=== PATIENT | male | born 1955 | race Caucasian/White ===

== ENCOUNTER 2018-07-28 03:40 | Inpatient (IN) ==
[2018-07-28] MEDS ORDERED: Naloxone 0.4 MG/ML INJ IVP PRN (05:27)
[2018-07-28] MEDS ORDERED: Ringers Solution, Lactated 1,000 ML IVC SCH (05:30)
[2018-07-28] MEDS ORDERED: Norepinephrine 4 MG in D5% in Water 250 ML IVC SCH (05:45)
[2018-07-28] MEDS ORDERED: 0.9 % Sodium Chloride 500 ML ONE (05:49)
[2018-07-28 05:52] LABS: ABG Base Excess -24 mEq/L (-2 to 3); ABG HCO3 9 mEq/L (21-27); ABG Oxygen Saturation 81 % (95-98); ABG PCO2 51 mmHg (35-45); ABG PH 6.87 pH Units (7.32-7.45); ABG PO2 78 mmHg (85-104); ABG TCO2 11 mEq/L (20-26); Blood Gas Modality ASSIST CONTROL; Blood Gas PEEP 10 cm H2O; Blood Gas Respiration Rate 16; Blood Gas VT 550 cc
[2018-07-28] MEDS ORDERED: EPINEPHrine 1 MG in D5% in Water 250 ML IVC SCH (06:00)
[2018-07-28 06:13] LABS: Heparin anti-factor XA UFH 0.01 IU/mL (0.30-0.70); INR 2.1; Prothrombin Time 24.1 Seconds (9.4-12.1)
[2018-07-28] MEDS ORDERED: 0.9 % Sodium Chloride 1,000 ML ONE (06:27)
[2018-07-28 06:28] LABS: Activated Partial Thrombo Time 120.3 Seconds (26.0-36.0)
[2018-07-28 06:30] LABS: Troponin I 16.27 ng/mL (< 0.04)
[2018-07-28 06:32] LABS: Albumin 3.7 g/dL (3.5-5.7); Albumin/Globulin Ratio 1.4 (1.1-2.2); Bilirubin,Direct 0.1 mg/dL (0.0-0.2); Bilirubin,Indirect 0.3 mg/dL (0.0-1.2); Bilirubin,Total 0.4 mg/dL (0.3-1.0); Calcium 9.9 mg/dL (8.6-10.3); Globulin 2.6 g/dL (2.4-3.5); Phosphorous 13.5 mg/dL (2.7-4.5); Potassium 5.9 mEq/L (3.5-5.1); Total Protein 6.3 g/dL (6.4-8.9)
[2018-07-28 07:12] LABS: Eosinophils # 0.2 K/mcL (0.0-0.6); Hematocrit 51.2 % (37.5-50.1); Hemoglobin 15.4 g/dL (12.9-16.9); Mean Corpuscular HGB Conc 30.1 g/dL (31.6-35.5); Mean Corpuscular Hemoglobin 29.4 pg (28.0-33.3); Mean Corpuscular Volume 97.9 fL (83.0-100.0); Mean Platelet Volume 9.9 fL (9.4-12.4); Nucleated Red Blood Cells 0.6 /100 WBC (0); Platelet Count 212 K/mcL (140-400); Red Blood Count 5.23 M/mcL (4.19-5.50); Red Cell Distribution Width 13.2 % (11.5-14.5)
[2018-07-28 07:16] LABS: ABG Base Excess -19 mEq/L (-2 to 3); ABG HCO3 12 mEq/L (21-27); ABG Oxygen Saturation 76 % (95-98); ABG PCO2 51 mmHg (35-45); ABG PO2 61 mmHg (85-104); ABG TCO2 14 mEq/L (20-26)
--- NOTE | 2018-07-28 07:26 | Internal Med History&Physical ---
<Brando Shieldsbh - Last Filed: 07/28/18 07:56> Date of Encounter: 07/28/18 Time of Encounter: 06:00 Internal Medicine - H&P: HPI History of present illness: Mr. Ortiz is a 62 year old male who is a transfer of from [place] because cardiac arrest. Patient was down for about 37 minutes when EMS got to the scene and they began the ACLS resuscitation. Most of the story was obtained from notes from the ER physician. According to them, patient was down for 20 mins even prior to arrival EMS. EMS initiated the ACLS protocol. Patient was given several doses of epinephrine, underwent defibrillation, was given amiodarone, and given atropine. Eventually patient ended up getting a transcutanous pacer, was started on dopamine and then on Levophed. Prior to putting the patient on a pacer, patient pulse was 35 and after putting him on the pacer, his heart rate went up to 80 with systolic blood pressure of 80s. patient was able to maintain this for over half an hour and life flight to the [facility] ICU for further management . Initial workup in the ER at the [place] showed patient white blood count was 8.6, glucose : 552, Trops 1.08, BNP : 297. Patient initial had a femoral access but had to transition to IJ access - currently he is on Levophed, dopamine and no epinephrine for blood pressure control current blood pressure is 74/44 with MAP of 59. All Systems PM: A 10-system review of systems was performed and is negative for pertinent fin dings except as documented above in the HPI. - Constitutional Constitutional: no fever(s) - Gastrointestinal Gastrointestinal: no bloating - Genitourinary Genitourinary ROS male: no dysuria - Musculoskeletal Musculoskeletal ROS IM: no joint swelling - Integumentary Integumentary IM: no rash - Constitutional Vitals: Resp Pulse Ox 16 94 07/28/18 05:17 07/28/18 05:17 Exam: Gen.: intubated . HEENT: oropharynx clear, Normocephalic, atraumatic, MMM Neck: supple, no JVD, no lymphadenopathy, no carotid bruit. Cardiac: transcutaneously paced, no murmur, +S1/S2, No BLE edema, PMI non- displaced Pulmonary: no wheezes, rales or rhonchi, equal chest expansion, unlabored breathing Abdomen: soft, nontender, BS noted, no guarding, mildly distended. No organomegaly, no pulsatile masses, Skin: no visible lesions. Feels warm, clammy, no rashes, no lesions, no erythema, right lower extremity was cool to touch MSK: ROM not assessed. no joint swelling noted, gait not assessed while in bed. Non tender calf or clubbing, no cyanosis/clubbing/ or edema Neuro: Not assessed because patient was intubated Internal Med - H&P Results - Labs CBC & Chem 7: 07/28/18 06:58 07/28/18 05:52 Labs: BMP 07/28/18 05:52 Sodium 139 Potassium 5.9 H Chloride 102 Carbon Dioxide 13 L BUN 14 Creatinine 1.71 H Glucose 420 H Calcium 9.9 Cardiac Enzymes 07/28/18 Range/Units 05:52 Troponin I 16.27 H* (< 0.04) ng/mL Liver Function 07/28/18 Range/Units 05:52 Total Bilirubin 0.4 (0.3-1.0) mg/dL Direct Bilirubin 0.1 (0.0-0.2) mg/dL AST 264 H (13-39) Units/L ALT 140 H (7-52) Units/L Alkaline Phosphatase 187 H (34-104) Units/L Albumin 3.7 (3.5-5.7) g/dL - ABG Interpretation ABG results: 07/28/18 07/28/18 05:47 07:10 ABG pH 6.87 L* 7.00 L* D ABG pCO2 51 H 51 H ABG pO2 78 L 61 L ABG HCO3 9 L 12 L ABG Total CO2 11 L 14 L ABG O2 Saturation 81 L 76 L ABG Base Excess -24 L -19 L - Assessment and plan (1) Cardiac arrest Current Visit: Yes Status: Acute Assessment and plan: Etiology currently unknown. Patient found down 37 minutes before squad began ACLS on him and was transferred to the [place] ED. Patient underwent ACLS protocol with multiple rounds of CPR, and ACLS medications before being sent to [facility] ICU for further management. Here at the [place] patient went into V. tach,and ACLS was initiated again but eventually due to worsening hemodynamic status, family decided to withdraw care, and patient was pronounced at 7:25 AM - Time Spent With Patient Total time spent is greater than 50% in coordination of care (as documented) at patient's floor/unit and/or counseling patient: Brook Crowley - Last Filed: 07/28/18 19:11> Date of Encounter: 07/28/18 All Systems PM: A 10-system review of systems was performed and is negative for pertinent findings except as documented above in the HPI. - Constitutional Vitals: Resp Pulse Ox 16 94 07/28/18 05:17 07/28/18 05:17 Internal Med - H&P Results - Labs CBC & Chem 7: 07/28/18 06:58 07/28/18 05:52 Labs: BMP 07/28/18 05:52 Sodium 139 Potassium 5.9 H Chloride 102 Carbon Dioxide 13 L BUN 14 Creatinine 1.71 H Glucose 420 H Calcium 9.9 Cardiac Enzymes 07/28/18 Range/Units 05:52 Troponin I 16.27 H* (< 0.04) ng/mL Liver Function 07/28/18 Range/Units 05:52 Total Bilirubin 0.4 (0.3-1.0) mg/dL Direct Bilirubin 0.1 (0.0-0.2) mg/dL AST 264 H (13-39) Units/L ALT 140 H (7-52) Units/L Alkaline Phosphatase 187 H (34-104) Units/L Albumin 3.7 (3.5-5.7) g/dL - ABG Interpretation ABG results: 07/28/18 07/28/18 05:47 07:10 ABG pH 6.87 L* 7.00 L* D ABG pCO2 51 H 51 H ABG pO2 78 L 61 L ABG HCO3 9 L 12 L ABG Total CO2 11 L 14 L ABG O2 Saturation 81 L 76 L ABG Base Excess -24 L -19 L - Time Spent With Patient Total time spent is greater than 50% in coordination of care (as documented) at patient's floor/unit and/or counseling patient: - Attending Attestation I performed a history and physical exam of the patient and discussed management with the resident. I reviewed the resident's note and agree with the documented findings and plan of care. Information obtained from chart review and discussion with healthcare providers. Stu ortiz is a 62-year-old male with a reported history of hypertension and diabetes who was found down for approximately 20 minutes prior to EMS arrival, seen to be in cardiac arrest and underwent ACLS for 30-40 minutes prior to arrival to the hospital. At [place] CPR continued for another 30 minutes reported. He was intubated and femoral line was placed. Apart from the several doses of epinephrine and he was also defibrillated due to findings of V. fib and was given amiodarone; ROSC was then obtained. He was also given atropine and subsequently was started on transcutaneous pacing due to bradyarrhythmia after return of spontaneous circulation. Dopamine and norepinephrine were subsequently added on but remained hypotensive. Discussions were held with the family in regards to the gravity of the situation and poor prognosis. He is transferred here for further care. On arrival he remains on transcutaneous pacing. Physical exam remarkable for dilated and fixed pupils bilaterally, right leg from the groin down to his toes cold, pale and pulseless. Seen to have a femoral CVC placed however on my assessment it seems to have been placed in the artery and not the vein; blood gas extracted from this line confirms this finding. We will admit to ICU for out of hospital cardiac arrest and place on therapeutic hypothermia protocol. Continue vasopressor support and titrate vent settings according to ABG. Set pacing capture to 60bpm minimum. Get EKG and perform an echo. Check electrolytes for imbalances. Trend troponins over the next 24 hours. Monitor lactate levels. High-grade leukocytosis likely secondary to prolonged cardiac arrest. Continued monitoring and full evaluation for signs of infection should continue, especially subsequent development of pneumonia, but in the meantime there is no indication for prophylactic antimicrobials. Remove catheter from femoral site and consult vascular surgery. R IJ has been placed by me for more adequate access. Obtain urine toxicology testing. Request cardiology consultation as he may require PCI and also consideration of AICD for secondary prevention down the line. Head of bed elevation, ponce catheterization for output monitoring, maintenance of normoglycemia, stress ulcer and DVT prophylaxis should be performed. Enteral feeding can resume once hypothermia is completed. Prognosis remains poor and family has been made aware. He will require neurologic evaluation off sedation once/if stabilization is achieved. [place].
--- NOTE | 2018-07-28 07:26 | Procedure Note ---
Date of procedure: 07/28/18 Pre-op diagnosis: cardiac arrest Post-op diagnosis: same Procedure: The patient was placed in supine position and the area was prepped and draped in a sterile fashion. The area over the right IJ was anesthetized using 3cc's of 1% lidocaine. Using the sonosite, the IJ was identified, and a cook needle was used to cannulate the vein. Dark, non-pulsatile blood was seen. Using the Seldinger technique, a guidewire was passed through the needle and the needle was withdrawn. A small incision was made and a dilator sheath was then passed over the guidewire and then removed. The catheter was then placed as the guidewire was removed. The catheter was then sutured in place. All 3 ports had good return, and flushed with normal saline easily. Patient tolerated the procedure well. Surgeon: Oscar Shields Was there an observation assistant present: Yes Roller Cleaner: Brook Pearson Estimated blood loss (cc): 3.0 Specimen: none Pathology: none sent Condition: critical Disposition: ICU
--- NOTE | 2018-07-28 07:31 | Death Note ---
<Oscar Shields - Last Filed: 07/28/18 07:43> Discharge Sum: Summary - Date and Time Date of admission: 07/28/18 05:12 Date of : 07/28/18 Time of : 07:25 - Summary Details: Mr. Ortiz is a 62 year old male who is a transfer of from [place] because cardiac arrest. Patient was down for about 37 minutes when EMS got to the scene and they began the ACLS resuscitation. Most of the story was obtained from notes from the ER physician. According to them, patient was down for 20 mins even prior to arrival EMS. EMS initiated the ACLS protocol. Patient was given several doses of epinephrine, underwent defibrillation, was given amiodarone, and atropine. Eventually, patient ended up getting a transcutanous pacer, was started on dopamine and then on Levophed. Prior to putting the patient on a pacer, patient's pulse was 35 and after putting him on the pacer, his heart rate went up to 80 with systolic blood pressure of 80s. Patient was able to maintain his pulse for over half an hour and life flight to the [facility] ICU for further management. Initial workup in the ER at the [place] showed patient white blood count was 8.6, glucose : 552, Trops 1.08, BNP : 297. Patient initial had a femoral access but had to transition to IJ access - was initially on Levophed, dopamine and then we added another pressor (epinephrine) for blood pressure control . After being on 3 pressors, blood pressure was 74/44 with MAP of 59. While in the ICU patient HR was in 60s. Repeat labs showed lactic acid went up above 10 , along with other troponins of 16.27. Patient's repeat ABG showed he was significantly acidotic with PCO2 of 51 and pH of 7. Patient eventually went into V. tach, ACLS protocol was initiated, underwent multiple rounds of epinephrine, along with amiodarone and lidocaine. Owing to his worsening hemodynamic status, family was approached and they decided to withdraw care. Time of was 7:25 AM. - Additional Data Confirmation of as documented by pronouncing clinician: no pulse, no heart sounds, pupils fixed and dilated Family: contacted Additional persons at bedside: other Attending/PCP notified?: Yes Attending physician: Rajiv Weathers MD Was code activated?: Yes Discharge Sum: Diag - PCOD Probable Cause of : Cardiac arrest Discharge Sum: Prov - Provider Primary care physician: PCP NONE Consults: 07/28/18 06:15 Consult to Pulmonology [CONS] Routine Consulting Provider: [facility] Reason for Consult: Cardiac arrest with 1 hr of ACLS until ROSC Call Completed: No 07/28/18 06:16 Consult to Vascular Surgery [CONS] Routine Consulting Provider: Vascular Surgery [place] Reason for Consult: Pale pulses RLE presumed after placement of R Femoral line which appears to located in the femoral artey Call Completed: No 07/28/18 06:18 Consult to Cardiology [CONS] Routine Comment: Consulting Provider: Cardiology [facility] Reason for Consult: Cardica arrest with 1 hr of ACLS before ROSC. FTH Vfib--> received amiodarone; 3rd degree HB with transcutaneous pacing Call Completed: No Brook Crowley - Last Filed: 07/28/18 19:10> Discharge Sum: Summary - Date and Time Date of admission: 07/28/18 05:12 - Additional Data Attending physician: Rajiv Weathers MD Discharge Sum: Prov - Provider Primary care physician: PCP NONE Admitting clinician: Brook Pearson Consults: 07/28/18 06:15 Consult to Pulmonology [CONS] Routine Consulting Provider: [facility] Reason for Consult: Cardiac arrest with 1 hr of ACLS until ROSC Call Completed: No 07/28/18 06:16 Consult to Vascular Surgery [CONS] Routine Consulting Provider: Vascular Surgery [facility] Reason for Consult: Pale pulses RLE presumed after placement of R Femoral line which appears to located in the femoral artey Call Completed: No 07/28/18 06:18 Consult to Cardiology [CONS] Routine Comment: Consulting Provider: Cardiology [facility] Reason for Consult: Cardica arrest with 1 hr of ACLS before ROSC. FTH Vfib--> received amiodarone; 3rd degree HB with transcutaneous pacing Call Completed: No Pronouncing clinician: Brook Pearson - Attending Attestation The patient went into V-tach arrest. Resuscitative efforts were continued. The family decided to withdraw care. He was pronounced at 0725hrs.
[2018-07-28] MEDS ORDERED: *HR* Heparin 5,000 UNIT/ML VIAL SQ SCH (08:00)
[2018-07-28 08:09] LABS: Lymphocytes # 9.6 K/mcL (0.6-4.6); Monocytes # 0.5 K/mcL (0.0-1.3); Neutrophils # 12.3 K/mcL (1.6-8.9); Platelet Estimate Normal (Normal)
[2018-07-28 08:11] LABS: Reactive Lymphocytes Present (Not Present)
[2018-07-28] MEDS ORDERED: Pantoprazole 40 MG VIAL IVP SCH (09:00)
[2018-07-28] MEDS ORDERED: D5% in Water 250 ML IV BAG IV ONE (12:03)
[2018-07-28] MEDS ORDERED: *HR* Norepinephrine 4 MG/4 ML VIAL IVC ONE (12:03)
[2018-07-28] MEDS ORDERED: *HR* Amiodarone 150 MG/3 ML VIAL IVPB ONE ×2 (12:03)
[2018-07-28] MEDS ORDERED: Lidocaine 2% Syringe 100 MG/5 ML IV ONE (12:03)
[2018-07-28] MEDS ORDERED: *HR* EPINEPHrine 1 MG/10 ML SYRINGE IVP ONE (12:03)
== END 2018-07-28 07:25 | disposition expired | DRG 196 ==
LOC: ICNU 05:12
PROVIDERS: ADMIT Internal Medicine; ATTEND Internal Medicine